=== PATIENT | female | born 1945 | race Hispanic/Latino ===

== ENCOUNTER 2017-04-04 17:40 | Emergency (ER) | payer OTHER ==
[~2017-04-04] VITALS: Ht 144.8 cm; Wt 73.0 kg
[~2017-04-04 17:40] MED LIST: AUGMENTIN 875-1 EACH PO; MULTI-VITAMIN1 EACH PO; NAPROXEN250 MG PO; TYLENOL # 31 EA PO; ZOFRAN ODT4 MG SL; bacid PO
[2017-04-04 19:07] LABS: BILIRUBIN,URINE NEGATIVE (NEGATIVE); CLARITY,URINE CLEAR (CLEAR); COLOR,URINE YELLOW (YELLOW); KETONES,URINE NEGATIVE (NEGATIVE); LEUKOCYTE ESTERASE ,URINE 1+ (NEGATIVE); NITRITE,URINE NEGATIVE (NEGATIVE); PROTEIN,URINE DIPSTICK NEGATIVE (NEGATIVE); URINE UROBILINOGEN 0.2 mg/dL (0.2 - 1)
[2017-04-04 20:30] LABS: EPITHELIAL CELLS,URINE FEW /LPF
[2017-04-04 20:31] LABS: WBC,URINE (MAN) 21-50 /HPF (0-5)
[2017-04-04 20:32] LABS: BACTERIA,URINE RARE /HPF
[2017-04-04] MEDS ORDERED: CEFTRIAXONE SOD 1 GM VIAL IM ONE (21:00)
[2017-04-04 23:23] LABS: BASOPHILS # (AUTO) 0.1 (0.0-0.1); BASOPHILS % 0.5 % (0.0-1.0); EOSINOPHILS # (AUTO) 0.3 (0.0-0.4); EOSINOPHILS % 1.9 % (0.0-6.0); HEMATOCRIT 40.2 % (34.2-44.1); HEMOGLOBIN 13.4 g/dL (12.0-16.0); LYMPHOCYTES # (AUTO) 4.1 (1.0-3.2); LYMPHOCYTES % 30.2 % (18.0-39.1); MEAN CORPUSCULAR HEMOGLOBIN 29.4 pg (28-32); MEAN CORPUSCULAR HGB CONC 33.3 g/dL (31-35); MEAN CORPUSCULAR VOLUME 88.2 fL (81-99); MONOCYTES # (AUTO) 0.5 (0.2-0.8); MONOCYTES % 3.8 % (4.4-11.3); NEUTROPHILS # (AUTO) 8.5 (2.1-6.9); NEUTROPHILS % 63.3 % (38.7-80.0); PLATELET COUNT 267 x10e3/uL (140-360); RED BLOOD COUNT 4.56 x10e6/uL (3.6-5.1); RED CELL DISTRIBUTION WIDTH 13.3 % (11.7-14.4)
[2017-04-04 23:43] LABS: ALANINE AMINOTRANSFERASE 14 IU/L (0-55); ALBUMIN 3.7 g/dL (3.5-5.0); ALBUMIN/GLOBULIN RATIO 0.8 (0.8-2.0); ALKALINE PHOSPHATASE 114 IU/L (40-150); ANION GAP 13.6 mmol/L (8-16); BLOOD UREA NITROGEN 11 mg/dL (7-26); BUN/CREATININE RATIO 17 (6-25); CALCIUM 9.5 mg/dL (8.4-10.2); CARBON DIOXIDE 22 mmol/L (22-29); CHLORIDE 106 mmol/L (98-107); CREATININE, SERUM 0.64 mg/dL (0.57-1.11); EST GLOMERULAR FILTRATION RATE > 60 ML/MIN (60-); GLUCOSE 106 mg/dL (74-118); LIPASE 22 U/L (8-78); POTASSIUM 3.6 mmol/L (3.5-5.1); SODIUM 138 mmol/L (136-145)
--- NOTE | 2017-04-05 01:10 | Diagnostic Imaging Report ---
EXAM: CT ABDOMEN AND PELVIS with IV CONTRAST DATE: 04/04/2017 7:04 PM Time stamp on Exam: 0028 hours INDICATION: Abdominal pain, nausea and vomiting COMPARISON: CT of the abdomen and pelvis August 16, 2016 TECHNIQUE: The abdomen and pelvis were scanned using a multidetector helical scanner. Coronal and sagittal reformations were obtained. Routine protocol performed. IV Contrast: 100 cc SV 370 Oral Contrast: Water CTDIvol has been reviewed. It is below the limits set by the Radiation Protocol Committee (RPC). FINDINGS: LOWER THORAX: No consolidations LIVER: No masses BILIARY: Cholecystectomy. No ductal dilation. SPLEEN: No masses PANCREAS: No masses ADRENALS: No nodules KIDNEYS: Symmetric perfusion. No enhancing masses. Stable mild right UPJ obstruction. GI TRACT: Mild thickening of the descending and sigmoid colon, possibly related to underdistention. No pericolonic inflammation. Small hiatal hernia. Normal appendix. VESSELS: No acute findings PERITONEUM/RETROPERITONEUM: No free air or fluid LYMPH NODES: No lymphadenopathy REPRODUCTIVE ORGANS: Unremarkable BLADDER: Unremarkable SOFT TISSUES: Unremarkable BONES: Stable nonspecific lucencies in the L3 vertebral body. IMPRESSION: Small esophageal hernia, possibly paraesophageal. No bowel obstruction or evidence of appendicitis. Signed by: Dr. Nicky Clarke M.D. on 04/05/2017 1:06 AM
[2017-04-05] MEDS ORDERED: CEFTRIAXONE SOD 1 GM VIAL IV STA (02:27)
[2017-04-05] MEDS ORDERED: CEFTRIAXONE SOD 1 GM VIAL ONE ×2 (02:39→02:45)
[2017-04-05] MEDS ORDERED: CEFTRIAXONE SOD 1 GM/NS 50 ML 50 ML IV ONE (02:45)
[2017-04-05] MEDS ORDERED: SODIUM CHLORIDE 0.9% 50ML 50 ML ONE (03:22)
[2017-04-05] MEDS ORDERED: IOPAMIDOL 370 MG/ML 200 ML INFUS..BTL INJ ONE (03:22)
== END 2017-04-05 03:34 | disposition home or self-care (01) ==
LOC: ER 17:40
DX: R10.33 Periumbilical pain (principal); R11.2 Nausea with vomiting, unspecified; N30.91 Cystitis, unspecified with hematuria
CPT/HCPCS: 36415; 74177; 80053; 81001; 83690; 85025; 87086; 99284; J0696; Q9967